=== PATIENT | male | born 2000 | race Hispanic/Latino ===

== ENCOUNTER 2023-08-18 23:43 | Emergency (ER) | payer BC, SELFPAY ==
[2023-08-19] MEDS ORDERED: Ketorolac Tromethamine 30 MG/ML VIAL ONE (00:40)
[2023-08-19] MEDS ORDERED: Dexamethasone 4 MG TAB ONE (00:44)
[2023-08-19] MEDS ORDERED: Dexamethasone 1 MG TAB ONE (00:44)
== END 2023-08-19 01:22 | disposition home or self-care (01) ==
LOC: NAV ERS 23:43
DX: J02.9 Acute pharyngitis, unspecified (principal); F17.210 Nicotine dependence, cigarettes, uncomplicated
CPT/HCPCS: 87081; 87430; 96372; 99283; J1885; J8540

== ENCOUNTER 2023-11-02 11:24 | Emergency (ER) | payer BC, SELFPAY ==
[2023-11-02] MEDS ORDERED: Penicillin V Potassium 250 MG TAB ONE (11:40)
[2023-11-02] MEDS ORDERED: traMADol HCl 50 MG TAB ONE (11:41)
== END 2023-11-02 12:07 | disposition home or self-care (01) ==
LOC: NAV ERS 11:24
DX: K04.7 Periapical abscess without sinus (principal); F17.210 Nicotine dependence, cigarettes, uncomplicated
CPT/HCPCS: 99282